=== PATIENT | male | born 1995 | race Caucasian/White ===

== ENCOUNTER 2019-12-27 08:39 | Emergency (ER) | payer BC, SELFPAY ==
[2019-12-27 08:49] VITALS: BP 133/78; PULSE 53; RESP 14; TEMP 36.8; O2SAT 99; BMI 25.7
--- NOTE | 2019-12-27 09:04 | XRR_ITS ---
PROCEDURE INFORMATION: Exam: XR Chest, 1 View Exam date and time: 12/27/2019 9:20 AM Age: 24 years old Clinical indication: Chest pain; Additional info: Chest pain x 2 weeks TECHNIQUE: Imaging protocol: XR of the chest Views: 1 view. COMPARISON: No relevant prior studies available. FINDINGS: Lungs: Unremarkable. No consolidation. Pleural space: Unremarkable. No pleural effusion. No pneumothorax. Heart/Mediastinum: Unremarkable. No cardiomegaly. Bones/joints: Unremarkable. XR/XR chest 1V portable [id number] IMPRESSION: No acute findings.
--- NOTE | 2019-12-27 09:04 | USCV_ITS ---
GarciaRauln Age: 24 Gender: M : 1995 Exam Date: 12/27/2019 09:29 Ordering Phys: Lawrence Cho DO Technologist: Annalee Virk Exam Location: [facility] [place] Indication: PALPATIONS, FAMILY HISTORY OF CARDIOMYOPATHY BP: 118 / 68 HR: 46 Rhythm: Sinus Technical Quality: Adequate MEASUREMENTS (Male / Female) Normal Values 2D ECHO LV Diastolic Diameter PLAX 5.3 cm 4.2 - 5.9 / 3.9 - 5.3 cm LV Systolic Diameter PLAX 3.9 cm LV Chamber Size 4.2 cm IVS Diastolic Thickness 1.1 cm 0.6 - 1.0 / 0.6 - 0.9 cm IVS Systolic Thickness 1.3 cm LVPW Diastolic Thickness 1.7 cm 0.6 - 1.0 / 0.6 - 0.9 cm LVPW Systolic Thickness 1.9 cm RV Chamber Size 2.7 cm LVOT Diameter 2.1 cm LV Ejection Fraction 2D Teich 52.4 % LV Ejection Fraction MOD 2C 66.3 % LV Ejection Fraction 2C AL 66.3 % LA Diameter 3.7 cm LA Width 3.3 cm LA Height 3.7 cm RA Width 4.9 cm RA Height 4.5 cm Aorta at Sinotubular Diameter 3.2 cm M-MODE LV Diastolic Diameter MM 5.2 cm 4.2 - 5.9 / 3.9 - 5.3 cm LV Systolic Diameter MM 3.7 cm LV Ejection Fraction MM Teich 55.8 % IVS Diastolic Thickness MM 0.9 cm 0.6 - 1.0 / 0.6 - 0.9 cm IVS Systolic Thickness MM 1.2 cm LVPW Diastolic Thickness MM 1.4 cm 0.6 - 1.0 / 0.6 - 0.9 cm LVPW Systolic Thickness MM 1.5 cm RV Diastolic Diameter MM 2.3 cm Aortic Annulus Diameter 3.5 cm LA Ao Ratio MM 1.1 MV E Point Septal Separation 0.3 cm DOPPLER AV Peak Velocity 100.0 cm/s LVOT Peak Velocity 78.0 cm/s AV Area Cont Eq vti 2.5 cm squared AV Area Cont Eq pk 2.8 cm squared MV Area PHT 3.9 cm squared Mitral E to A Ratio 2.0 MV E' Velocity 18.0 cm/s Mitral E to MV E' Ratio 5.0 Mitral E to LV E' Lateral Ratio 4.5 Mitral E to LV E' Septal Ratio 5.7 TR Peak Velocity 79.0 cm/s TR Peak Gradient 2.5 mmHg TR Mean Velocity 157.1 cm/s TR Mean Gradient 10.4 mmHg TR Velocity Time Integral 68.1 cm TV Peak E Velocity 51.0 cm/s Right Atrial Pressure 3.0 mmHg Pulmonary Artery Systolic Pressu 5.5 mmHg PV Peak Velocity 48.0 cm/s RV Acceleration Time 0.2 s RV Ejection Time 0.4 s RV AcT/ET 0.5 FINDINGS Left Ventricle Normal left ventricular size, systolic function and wall thickness, with no regional wall motion abnormalities. Left ventricular ejection fraction is estimated at 63 %. Normal diastolic function for age. Right Ventricle Normal right ventricular size and systolic function, RVSP 19 mmHg. Right Atrium Normal right atrial size. Right atrial pressure estimated at 3 mmHg. Left Atrium Normal left atrial size. Mitral Valve Mildly thickened mitral valve. There is mild bowing of anterior mitral valve leaflet. No significant prolapse. No mitral valve stenosis. Trace mitral regurgitation. Aortic Valve Structurally normal trileaflet aortic valve. No aortic valve stenosis. No aortic valve regurgitation. Tricuspid Valve Structurally normal tricuspid valve. Trace tricuspid valve regurgitation. Pulmonic Valve Structurally normal pulmonic valve. No pulmonary valve stenosis. Trace pulmonary valve regurgitation. Pericardium No pericardial effusion. Normal-sized inferior vena cava with more than 50% respiratory variation. Aorta Normal size aortic root and proximal ascending aorta. CONCLUSIONS 1. Normal left ventricular size, systolic function and wall thickness, with no regional wall motion abnormalities. Left ventricular ejection fraction is estimated at 63 %. Normal diastolic function for age. 2. Normal pulmonary artery pressure. 3. Mildly thickened mitral valve. There is mild bowing of anterior mitral valve leaflet. No significant prolapse. Trace mitral valve regurgitation. 4. Normal pulmonary artery pressure. 5. No prior similar studies to compare. Tomeka Odell MD (Electronically Signed) Final Date: 27 December 2019 11:29 S
[2019-12-27 10:02] VITALS: BP 125/71; PULSE 51; RESP 22; O2SAT 94
[2019-12-27 10:04] LABS: Basophils % 0.2 %; Eosinophils # 0.1 10^3/uL (0.0-0.8); Eosinophils % 1.1 %; Hematocrit 44.8 % (42.0-52.0); Hemoglobin 15.4 g/dL (11.7-16.6); Lymphocytes # 1.2 10^3/uL (0.8-4.8); Lymphocytes % 13.4 %; Mean Corpuscular HGB Conc 34.4 g/dL (30.0-36.0); Mean Corpuscular Hemoglobin 30.9 pg (28.0-34.0); Mean Corpuscular Volume 89.8 fL (80-94); Mean Platelet Volume 10.1 fL (7.4-10.4); Monocytes # 0.6 10^3/uL (0.2-0.9); Monocytes % 6.7 %; Neutrophils # 7.23 10^3/uL (1.8-7.7); Neutrophils % 78.4 %; Nucleated Red Blood Cells % 0 %; Platelet Count 203 10^3/cmm (130-400); Red Blood Count 4.99 10^6/uL (4.1-5.3); Red Cell Distribution Width 12.1 % (12.1-15.1); White Blood Count 9.2 10^3/uL (4.0-10.0)
[2019-12-27 10:33] LABS: D Dimer <= 0.27 ug/mIFEU (0-0.59)
[2019-12-27 10:35] LABS: Troponin(5th) Baseline 8 ng/L (0-15)
[2019-12-27 10:43] LABS: Alanine Aminotransferase 22 U/L (0-41); Albumin Level 4.7 g/dL (3.5-5.2); Alkaline Phosphatase 77 IU/L (40-130); Anion Gap 14.1 (5-19); Aspartate Amino Transferase 20 U/L (0-40); Blood Urea Nitrogen 12 mg/dL (6-20); Calcium 9.5 mg/dL (8.5-10.5); Carbon Dioxide 25 mmol/L (22-29); Chloride 105 mmol/L (98-107); Globulin 2.8 g/dL (1.3-4.6); Glomerular Filtration Rate 119.8 mL/min (90-130); Glucose 109 mg/dL (65-115); Osmolality Calculated 290 mOsm/kg (285-295); Potassium 4.1 mmol/L (3.5-5.1); Sodium 140 mmol/L (136-145); Thyroid Stimulating Hormone 1.23 uIU/mL (0.27-4.20); Total Bilirubin 0.5 mg/dL (0.15-1.2); Total Protein 7.5 g/dL (6.6-8.7)
--- NOTE | 2019-12-27 10:54 | W.ED.CHESTPA ---
HPI - Chest Pain General: Chief Complaint: Chest Pain Stated Complaint: CHEST PAIN,N/V Time Seen by Provider: 12/27/19 08:53 History of Present Illness: HPI narrative: 24-year-old male comes in with episodes of recurrent chest pain. He is quite concerned about this because he does have a very impressive family history with several family members with early cardiac and idiopathic cardiomyopathies. He has had this for the last 6 to 8 months is intermittent does not really notice anything that makes it better or worse. He states at times gets palpitation feels weak he just feels like something is wrong. He recently seen his PCP who started a work-up including a thyroid but those results are not back yet I did talk to Dr. Ferro on the phone today there is some thought that some of this may be anxiety and depression however since patient does have a very significant family history of early cardiac and cardiomyopathy he does need further work-up. MD complaint: chest discomfort Pertinent past history: other Onset (ago): month(s) (6-8) Timing of current episode: episodic Prior episodes: Yes Onset: during rest and during exertion Pain radiation: none Severity: moderate Quality: heaviness Relieving factors: nothing Exacerbating factors: nothing Associated symptoms: Reports nausea, palpitations, sense of impending doom and vomiting; Deny abdominal pain, diaphoresis, dyspnea, fever(s), leg edema or syncope Treatment prior to arrival: none Review of Systems Const: Denies: fever(s) or diaphoresis ENMT: Denies: throat pain, ear or mastoid pain, nasal discharge or nasal congestion Card: Reports: palpitations; Denies: syncope Resp: Denies: dyspnea GI: Reports: nausea and vomiting; Denies: abdominal pain : Denies: flank pain, dysuria, urinary frequency or urinary urgency Skin/Breast: Denies: rash or pruritus Physical Exam Const: COMMON NORMALS: no acute distress GENERAL APPEARANCE: cooperative and comfortable ORIENTATION/CONSCIOUSNESS: Yes awake, Yes oriented to person, Yes oriented to place and Yes oriented to time HENMT: COMMON NORMALS: normocephalic, atraumatic and hearing grossly normal bilaterally HEAD & SCALP: normocephalic and atraumatic Eye: COMMON NORMALS: Equal, round and reactive pupils present, EOMs intact bilaterally, conjunctivae normal and no scleral icterus CONJUNCTIVA: Yes conjunctivae normal PUPIL: Yes Equal, round and reactive pupils present Neck/C-Spine: COMMON NORMALS: full ROM, no lymphadenopathy, supple and no JVD Lymph: LYMPHATIC: no lymphadenopathy noted and no lymphedema noted Resp: COMMON NORMALS: normal respiratory effort, No retractions, No use of accessory muscles and clear to auscultation bilaterally AUSCULTATION: clear to auscultation bilaterally Cardio: COMMON NORMALS: no JVD, regular rate, regular rhythm and No murmurs present (Cardio) RATE: regular rate RHYTHM: regular rhythm GI: COMMON NORMALS: Soft to palpation and No hepatosplenomegaly present AUSCULTATION: Yes normoactive bowel sounds PALPATION: Yes Soft to palpation, No Tenderness to palpation present (GI), No Guarding due to palpation present (GI) and Yes No hepatosplenomegaly present Extremity: COMMON NORMALS: normal to inspection, capillary refill normal, no clubbing, cyanosis or edema, no calf tenderness and no pedal edema Neuro: SENSORIUM/ORIENTATION: Yes oriented to person, Yes oriented to place and Yes oriented to time Skin: COMMON NORMALS: no rashes or lesions noted GENERAL SKIN EXAM: no rashes or lesions noted Course Vital Signs: Vital signs: Vital Signs Temperature 98.2 F 12/27/19 08:49 Pulse Rate 52 L 12/27/19 11:25 Respiratory Rate 18 12/27/19 11:25 Blood Pressure 112/74 12/27/19 11:25 Pulse Oximetry 98 12/27/19 11:25 MDM - Chest Pain Lab Data: Labs: Lab Results 12/27/19 12/27/19 12/27/19 Range/Units 09:58 09:58 09:58 WBC 9.2 (4.0-10.0) 10^3/ uL RBC 4.99 (4.1-5.3) 10^6/u L Hgb 15.4 (11.7-16.6) g/dL Hct 44.8 (42.0-52.0) % MCV 89.8 (80-94) fL MCH 30.9 (28.0-34.0) pg MCHC 34.4 (30.0-36.0) g/dL RDW 12.1 (12.1-15.1) % Plt Count 203 (130-400) 10^3/c mm MPV 10.1 (7.4-10.4) fL Neut % (Auto) 78.4 % Lymph % (Auto) 13.4 % [place] % (Auto) 6.7 % Eos % (Auto) 1.1 % Baso % (Auto) 0.2 % Neut # (Auto) 7.23 (1.8-7.7) 10^3/u L Lymph # (Auto) 1.2 (0.8-4.8) 10^3/u L [place] # (Auto) 0.6 (0.2-0.9) 10^3/u L Eos # (Auto) 0.1 (0.0-0.8) 10^3/u L Baso # (Auto) 0.0 (0.0-0.1) 10^3/u L Nucleated RBC % (a uto) 0 % Nucleated RBCs # 0.0 /100WBC D-Dimer <= 0.27 (0-0.59) ug/mIFE U Sodium 140 (136-145) mmol/L Potassium 4.1 (3.5-5.1) mmol/L Chloride 105 (98-107) mmol/L Carbon Dioxide 25 (22-29) mmol/L Anion Gap 14.1 (5-19) BUN 12 (6-20) mg/dL Creatinine 0.8 (0.7-1.2) mg/dL GFR Calculation 119.8 (90-130) mL/min Glucose 109 (65-115) mg/dL Calculated Osmolal ity 290 (285-295) mOsm/k g Calcium 9.5 (8.5-10.5) mg/dL Total Bilirubin 0.5 (0.15-1.2) mg/dL AST 20 (0-40) U/L ALT 22 (0-41) U/L Alkaline Phosphata se 77 (40-130) IU/L Troponin T Baselin e (0-15) ng/L Total Protein 7.5 (6.6-8.7) g/dL Albumin 4.7 (3.5-5.2) g/dL Globulin 2.8 (1.3-4.6) g/dL TSH 1.23 (0.27-4.20) uIU/ mL 12/27/19 Range/Units 09:58 WBC (4.0-10.0) 10^3/ uL RBC (4.1-5.3) 10^6/u L Hgb (11.7-16.6) g/dL Hct (42.0-52.0) % MCV (80-94) fL MCH (28.0-34.0) pg MCHC (30.0-36.0) g/dL RDW (12.1-15.1) % Plt Count (130-400) 10^3/c mm MPV (7.4-10.4) fL Neut % (Auto) % Lymph % (Auto) % [place] % (Auto) % Eos % (Auto) % Baso % (Auto) % Neut # (Auto) (1.8-7.7) 10^3/u L Lymph # (Auto) (0.8-4.8) 10^3/u L [place] # (Auto) (0.2-0.9) 10^3/u L Eos # (Auto) (0.0-0.8) 10^3/u L Baso # (Auto) (0.0-0.1) 10^3/u L Nucleated RBC % (a uto) % Nucleated RBCs # /100WBC D-Dimer (0-0.59) ug/mIFE U Sodium (136-145) mmol/L Potassium (3.5-5.1) mmol/L Chloride (98-107) mmol/L Carbon Dioxide (22-29) mmol/L Anion Gap (5-19) BUN (6-20) mg/dL Creatinine (0.7-1.2) mg/dL GFR Calculation (90-130) mL/min Glucose (65-115) mg/dL Calculated Osmolal ity (285-295) mOsm/k g Calcium (8.5-10.5) mg/dL Total Bilirubin (0.15-1.2) mg/dL AST (0-40) U/L ALT (0-41) U/L Alkaline Phosphata se (40-130) IU/L Troponin T Baselin e 8 (0-15) ng/L Total Protein (6.6-8.7) g/dL Albumin (3.5-5.2) g/dL Globulin (1.3-4.6) g/dL TSH (0.27-4.20) uIU/ mL Discharge Plan Discharge Patient Disposition: Home Clinical Impression: Atypical chest pain Condition: Stable Prescriptions: No Action escitalopram oxalate 10 mg tablet 10 mg PO DAILY RF: 0 Discharge Orders: Discharge Order (Routine); Ordered 12/27/19 Ordered By: Lawrence Cho Discharge Diet: Usual diet Discharge Activity: Increase activity as tolerated Activity Restrictions/Additional Instructions: Follow-up with Dr. Ferro for further evaluation and recommendation for other potential testing. Discharge Date/Time: 12/27/19 11:25 Coding Level of Care Code ED Flying Ii Instructor for Chg Fwd Exam Comprehensive
[2019-12-27 11:00] VITALS: BP 126/70; PULSE 48; RESP 18; O2SAT 97
[2019-12-27 11:25] VITALS: BP 112/74; PULSE 52; RESP 18; O2SAT 98
== END 2019-12-27 11:25 | disposition home or self-care (01) ==
PROVIDERS: Emergency Provider Family Medicine
DX: R07.89 Other chest pain (principal)
CPT/HCPCS: 12345; 71045; 80053; 84443; 84484; 85025; 85378; 93306; 99282; 99283

== ENCOUNTER → 2021-04-15 14:07 | Outpatient (BNVA) | payer BC, SELFPAY | PROVIDERS: Visit Provider Family Medicine | DX: K92.1 Melena (principal); R10.32 Left lower quadrant pain; Z76.89 Persons encountering health services in other specified circumstances | CPT/HCPCS: 80053; 84443; 85025; 85651; 86140 ==

== ENCOUNTER → 2021-06-24 14:54 | Outpatient (BNVA) | payer BC, SELFPAY | PROVIDERS: PCP Family Medicine; Visit Provider Surgery | DX: Z11.52 Encounter for screening for COVID-19 (principal) | CPT/HCPCS: 87635 ==

== ENCOUNTER 2021-06-27 06:29 | Day surgery (SDC) | payer BC, SELFPAY ==
[2021-06-24 13:01] VITALS: BMI 24.9
--- NOTE | 2021-06-27 06:55 | W.PM.OPSFHP ---
Same Day Surgery H&P Indication for Procedure/HPI DATE OF PROCEDURE: June 27, 2021 CHIEF COMPLAINT/INDICATIONFOR SURGICAL PROCEDURE: Blood in stool PREOP DIAGNOSIS: Bleeding per rectum PLANNED PROCEDURE: Operation Date: 06/27/21 08:00 Proposed Procedures p EGD(Not Applicable) - Rodriguez Ramsay MD s Colonoscopy [id number]/k92.1/r10.32(Not Applicable) - Rodriguez Ramsay MD 05/02/2021 This is a pleasant 26 years old gentleman referred to my practice with history of bleeding per rectum. Over the past 1 year or so. Patient denies history of inflammatory bowel disease or peptic ulcer disease or nonintentional weight loss. Also he brought pictures on his cell phone and showed it to me and it is unremarkable blood with stools and fragments of clots as well. Patient reports history of his grandpa with colon cancer in his 50s. He denies any other constitutional symptoms.He has not been on any blood thinners or NSAIDs 06/27/2021 Patient comes today for diagnostic EGD and colonoscopy, patient reports couple, patient reports couple of bouts of blood in since last visit in the office ROS All systems have been reviewed negative except as per the above or per problem list Medications/Allergies* Home Medications Medication Instructions Recorded Confirmed Type rosuvastatin 10 mg tablet 10 mg PO BEDTIME 06/24/21 06/24/21 History Allergies/Adverse Reactions Allergy/AdvReac Type Severity Reaction Status Date / Time No Known Allergies Allergy Verified 06/27/21 07:22 Pertinent History/Comorbid Conditions* Social History Smoking and tobacco status: current every day smoker e-cigarettes Alcohol intake: current Pertinent Exam Findings alert, oriented x 3, regular rate & rhythm and procedure specific exam findings (Abdominal exam nontender nondistended soft) Recommendations Surgery/Procedure today (EGD and colonoscopy with possible biopsy) Coding Level of Care Code Acute Cooker Cleaner for Jose Angel Ospina
--- NOTE | 2021-06-27 06:58 | P.ANESASSM_ITS ---
Pre-Anesthetic Assessment Height/Weight: Height 1.88 m Weight 87.997 kg Operation Date: 06/27/21 08:00 Proposed Procedures p EGD(Not Applicable) - Rodriguez Ramsay MD s Colonoscopy [id number]/k92.1/r10.32(Not Applicable) - Rodriguez Ramsay MD Familial anesthetic complications: None Was Beta Arnol taken within 24 hours: N/A Was Clonidine taken within 24 hours: N/A Last intake: > 8 hrs Social Alcohol and No tobacco Exam alert, oriented x 3, clear to auscultation bilaterally and regular rate & rhythm Airway Mallampati: Class I Dentition: full Anesthetic Plan ASA status: 1 Anesthesia: MAC Risk of > 500 ml blood loss (7ml/kg in children): No Medications/Allergies Home Medications Medication Instructions Recorded Confirmed Last Taken Type rosuvastatin 10 mg tablet 10 mg PO BEDTIME 06/24/21 06/24/21 Unknown History Allergies Allergy/AdvReac Type Severity Reaction Status Date / Time No Known Allergies Allergy Verified 06/24/21 12:58 [facility] Anesthesia Social History Smoking and tobacco status: current every day smoker e-cigarettes Alcohol intake: current Data Anesthesia Cardiac Studies: 2 Echocardiogram Ultrasound 12/27/19
[2021-06-27 07:11] VITALS: BP 127/76; PULSE 53; RESP 16; TEMP 36.1; O2SAT 96
[2021-06-27] MEDS: sodium chloride 0.9% 1,000 ML 30 ML IV (07:19)
[2021-06-27 08:10] VITALS: BP 94/59; PULSE 65; RESP 16; TEMP 36.2; O2SAT 94
== END 2021-06-27 08:44 | disposition home or self-care (01) ==
PROVIDERS: PCP Family Medicine; Visit Provider Surgery
PROC: 0DJ08ZZ Inspection of Upper Intestinal Tract, Via Natural or Artificial Opening Endoscopic (ICD-10-PCS; CPT 43235; principal; 2021-06-27 08:00)
PROC: 0DJD8ZZ Inspection of Lower Intestinal Tract, Via Natural or Artificial Opening Endoscopic (ICD-10-PCS; CPT 45378; 2021-06-27 08:00)
DX: K92.1 Melena (principal); R10.32 Left lower quadrant pain; K21.9 Gastro-esophageal reflux disease without esophagitis; K29.70 Gastritis, unspecified, without bleeding; F17.290 Nicotine dependence, other tobacco product, uncomplicated
CPT/HCPCS: 43239; 45380; 88305; 88342; J2704; J7030

== ENCOUNTER 2022-04-28 17:00 | Emergency (ER) | payer BC, SELFPAY ==
[2022-04-28 17:19] VITALS: BP 110/69; PULSE 96; RESP 16; TEMP 36.6; O2SAT 95
[2022-04-28] MEDS: HYDROcodone-acetaminophen 5-325 mg Tablet 1 TAB PO (21:14)
--- NOTE | 2022-04-28 21:28 | ED_ITS ---
HPI - Skin/Abscess/Foreign Bdy General: Chief complaint: Skin/Abscess/Foreign Body Stated complaint: Something hanging out of anus Time Seen by Provider: 04/28/22 20:50 Source: patient Mode of arrival: ambulatory Limitations: no limitations History of Present Illness: 27-year-old male who has had hemorrhoids in the past he states he has had a hemorrhoids causing extreme pain over the last 2 days. States pain is sharp in nature rates his pain 8 out of 10 denies any worsening improving factors. Denies any worsening treatment fractures does have some constipation. Associated symptoms: Deny chills, fever(s), nausea or vomiting Review of Systems Const: Denies: fever(s), chills, body aches or change in appetite Eyes: Denies: blurry vision or eye discomfort ENMT: Denies: throat pain or dental pain Card: Denies: chest pain Resp: Denies: dyspnea GI: Denies: abdominal pain, nausea, vomiting or diarrhea : Denies: dysuria Musc: Denies: neck pain or back pain Skin/Breast: Denies: rash Neuro: Denies: headache(s) Psych: Denies: depression Jareth/Lymph: Denies: easy bruising All/Imm: Denies: urticaria PFSH ED PFSH: Medical History Blood in stool Gastritis GERD (gastroesophageal reflux disease) LLQ pain Social History Smoking and tobacco status: current every day smoker e-cigarettes Alcohol intake: current Physical Exam Const: COMMON NORMALS: no acute distress, patient oriented x3 and healthy appearing HENMT: COMMON NORMALS: normocephalic and atraumatic HEAD & SCALP: normocephalic and atraumatic Eye: COMMON NORMALS: conjunctivae normal CONJUNCTIVA: Yes conjunctivae normal Neck/C-Spine: COMMON NORMALS: full ROM and supple Chest: COMMONS NORMALS: normal inspection of the chest Resp: COMMON NORMALS: normal respiratory effort Cardio: COMMON NORMALS: regular rate, regular rhythm and No murmurs present (Cardio) RATE: regular rate RHYTHM: regular rhythm GI: COMMON NORMALS: Normal to inspection, nondistended, normoactive bowel sounds present, Soft to palpation, non-tender and no masses PALPATION: Yes Soft to palpation OTHER: Thrombosed external hemorrhoid Extremity: COMMON NORMALS: normal to inspection and full ROM Neuro: COMMON NORMALS: patient oriented x3, moves all extremities and no focal motor deficits Psych: COMMON NORMALS: mental status grossly normal, Normal thought process present and cooperative THOUGHT PROCESS: Normal thought process present Skin: COMMON NORMALS: no rashes or lesions noted and no wounds GENERAL SKIN EXAM: no rashes or lesions noted Course Vital Signs: Vital signs: Vital Signs Temperature 97.8 F 04/28/22 17:19 Pulse Rate 96 04/28/22 17:19 Respiratory Rate 16 04/28/22 17:19 Blood Pressure 110/69 04/28/22 17:19 Pulse Oximetry 95 04/28/22 17:19 Oxygen Delivery Me thod 04/28/22 17:19 MDM - Skin/Abscess/Foreign Bdy Medicial Decision Making Patient presents here with a thrombosed hemorrhoid I did incise it had a large clot removed patient stable for discharge. Discharge Plan Discharge Patient Disposition: Home Clinical Impression: External hemorrhoid, thrombosed Condition: Stable Prescriptions: New Proctofoam HC 1-1 % foam 1 applic MA BID PRN (Reason: hemorrhoids) Qty: 10 0RF No Action rosuvastatin 10 mg tablet 10 mg PO BEDTIME Protonix 40 mg tablet,delayed release (DR/EC) 40 mg PO DAILY 30 Days Qty: 30 3RF Discharge Orders: Discharge ED (Routine); Ordered 04/28/22 Ordered By: Bruno Leonardo Referrals: Ran Hunter DO [Primary Care Provider] - 1-3 days Discharge Diet: Advance as tolerated Discharge Activity: Resume usual activity Patient Instructions: Thrombosed Hemorrhoid (ED) Coding Level of Care Code ED Polymerization Helper for Chg Fwd Thrombosed Hemmorhoid I&D Procedure performed by: Bruno Leonardo Position of thrombosed hemmorhoid: three o'clock Size of hemmorhoid: large Specimens: specimen was not sent Position of patient: left lateral nelia-knife position Prepping solution used: Betadine soap Complications: no apparent complications Comments: lido epi 1% 3cc 11 blade used elipitical incision clot expressed
[2022-04-28 21:36] VITALS: PULSE 67; RESP 16; O2SAT 98
== END 2022-04-28 21:37 | disposition home or self-care (01) ==
PROVIDERS: Emergency Provider Emergency Medicine; PCP Family Medicine
DX: K64.5 Perianal venous thrombosis (principal); F17.290 Nicotine dependence, other tobacco product, uncomplicated
CPT/HCPCS: 99283